=== PATIENT | female | born 1985 ===

== ENCOUNTER 2020-12-07 10:10 | Outpatient (REF) | payer OTHER, SELFPAY ==
[2020-12-07 13:57] LABS: MANUAL DIFF FLAG NO
[2020-12-07 14:11] LABS: Basophils Percent Auto 0.3 % (0-2); Eosinophils Absolute Auto 0.2 X10*3/uL (0.0-0.4); Eosinophils Percent Auto 2.5 % (0-4); Hematocrit 36.6 % (37-47); Hemoglobin 11.7 g/dl (12.0-16.0); Imm Gran Abs Auto 0.02 X10*3/uL (0.00-0.03); Imm Gran Pct Auto 0.3 % (0.0-0.4); Lymphocytes Absolute Auto 2.2 X10*3/uL (1.2-4.9); Lymphocytes Percent Auto 34.1 % (20-40); Mean Corpuscular Hemoglobin 26.7 pg (27.0-33.0); Mean Corpuscular Volume 83.4 fL (80-98); Monocytes Absolute Auto 0.5 X10*3/uL (0.1-1.2); Monocytes Percent Auto 7.1 % (2-11); Neutrophils Absolute Auto 3.6 X10*3/uL (2.0-8.3); Neutrophils Percent Auto 55.7 % (45-73); Platelet Count 318 X10*3/uL (160-400); Red Blood Count 4.39 X10*6/uL (4.20-5.50); Red Cell Distribution Width 14.6 % (11.0-16.0); White Blood Count 6.5 X10*3/uL (4.8-10.8)
[2020-12-07 14:34] LABS: Alanine Aminotransferase 18 U/L (0-31); Alkaline Phosphatase 68 U/L (39-117); Anion Gap 11 (12-20); Aspartate Amino Transferase 18 U/L (5-31); Bilirubin Total 0.4 mg/dL (0.0-1.0); Blood Urea Nitrogen 12 mg/dL (9-16); Calcium 9.2 mg/dL (8.4-10.2); Carbon Dioxide 26 mmol/L (22-29); Chloride 105 mmol/L (96-108); Cholesterol 157 mg/dL; Estimated Glomerular Filt Rate > 60; Glucose Fasting 85 mg/dL (60-99); HDL Cholesterol 43 mg/dL; LDL Cholesterol Calculated 99 mg/dl; Potassium 4.3 mmol/L (3.3-5.1); Sodium 138 mmol/L (135-145); Total Protein 7.4 g/dL (6.5-8.0); Triglycerides 78 mg/dL
[2020-12-07 14:57] LABS: Thyroid Stimulating Hormone 0.67 uIU/mL (0.32-4.0)
[2020-12-07 15:31] LABS: Ferritin 7 ng/mL (10-122)
== END 2020-12-07 10:11 | disposition home or self-care (01) ==
LOC: HO.10HDL 10:10
PROVIDERS: Visit Provider Internal Medicine
DX: Z00.00 Encounter for general adult medical examination without abnormal findings (principal); D50.8 Other iron deficiency anemias; F41.0 Panic disorder [episodic paroxysmal anxiety]
CPT/HCPCS: 36415; 80053; 80061; 82728; 84443; 85025

== ENCOUNTER 2021-10-03 09:37 | Emergency (ER) | payer OTHER, SELFPAY ==
[2021-10-03 10:57] VITALS: BP 133/89; PULSE 78; RESP 18; TEMP 536.6; TEMP 998; O2SAT 98
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
== END 2021-10-03 14:45 | disposition home or self-care (01) ==
PROVIDERS: Emergency Provider Student in an Organized Health Care Education/Training Program; PCP Internal Medicine
DX: S39.012A Strain of muscle, fascia and tendon of lower back, initial encounter (principal); S13.4XXA Sprain of ligaments of cervical spine, initial encounter; V43.62XA Car passenger injured in collision with other type car in traffic accident, initial encounter; Y93.9 Activity, unspecified; Y92.410 Unspecified street and highway as the place of occurrence of the external cause; Y99.9 Unspecified external cause status; Z79.899 Other long term (current) drug therapy
CPT/HCPCS: 99283

== ENCOUNTER 2022-02-11 00:04 | Emergency (ER) | payer OTHER, SELFPAY ==
--- NOTE | 2022-02-11 | ECG_ITS ---
Test Reason : chest tightness Blood Pressure : / mmHG Vent. Rate : 091 BPM Atrial Rate : 091 BPM P-R Int : 152 ms QRS Dur : 090 ms QT Int : 378 ms P-R-T Axes : 050 037 045 degrees QTc Int : 464 ms Normal sinus rhythm RSR' or QR pattern in V1 suggests right ventricular conduction delay Otherwise normal ECG No previous ECGs available Referred By: Generic ED Physician Electronically Signed By:LUZMA GRAMAJO MD
--- NOTE | ~2022-02-11 | XR_ITS ---
EXAMINATION: XR CHEST, 2 VIEWS CLINICAL INFORMATION: Cough COMPARISON: None. TECHNIQUE: PA and lateral views of the chest were obtained. FINDINGS: Lungs are clear. No consolidation, pneumothorax, or pleural effusion. Cardiac and mediastinal contours are normal. Pulmonary vasculature is unremarkable. Trachea is midline. Osseous structures are unremarkable. Cholecystectomy clips are present in the right upper quadrant. XR/XR chest 2V IMPRESSION: No acute cardiopulmonary findings.
[2022-02-11 00:55] VITALS: BP 153/92; PULSE 97; RESP 16; TEMP 37; O2SAT 98; BMI 28.1
[2022-02-11 02:18] LABS: Influenza A Negative (Negative); Influenza B2 Negative (Negative)
--- NOTE | 2022-02-11 02:27 | ED.URI ---
HPI - URI/Sore Throat General Chief Complaint: Upper Respiratory Symptoms Stated Complaint: cough, burning when cough Time Seen by Provider: 02/11/22 02:27 Source: patient Mode of arrival: ambulatory Limitations: no limitations History of Present Illness HPI Narrative: Patient c/o dry cough feel congested since early today no fever no chills no running nose no other family member sick Related Data Previous Rx's Medication Instructions Recorded cyclobenzaprine 10 mg tablet 10 mg PO TID PRN muscle spasm #14 10/03/21 tabs ibuprofen 600 mg tablet 600 mg PO Q8H PRN pain #14 tabs 10/03/21 lidocaine 5 % topical patch 1 patch topical DAILY #15 ea 10/03/21 albuterol sulfate 90 mcg/actuation 2 puff inhalation Q4-6H PRN 02/11/22 aerosol inhaler (ProAir HFA) shortness of breath or wheezing #8.5 grams Allergies Allergy/AdvReac Type Severity Reaction Status Date / Time No Known Allergies Allergy Unverified 12/11/19 19:43 [No Known Allergies*] Review of Systems Review of Systems: Yes all other systems are reviewed and are negative [facility] Social History Social History Smoked in Last 30 Days: No Use of substances other than those prescribed or required for medical reasons: No Advance Directives: No Advance Directives Information Provided: No Physical Exam Vital Signs: Vital Signs: Last Vital Signs Temp 97.7 F 02/11/22 03:48 Pulse 90 02/11/22 03:48 Resp 18 02/11/22 03:48 BP 133/90 H 02/11/22 03:48 Pulse Ox 100 02/11/22 03:49 O2 Del Method 02/11/22 03:49 BMI result Body Mass Index 28.1 Appearance: Alert. Oriented X3. No acute distress. ENT: Pharynx normal. Oral Mucosa moist Neck: Normal inspection. Neck supple. CVS: Normal heart rate and rhythm. Pulses normal. Respiratory: No respiratory distress. Equal air entry bilateral, prolonged expiration with dry cough Abdomen: Soft and nontender. Bowel sounds are present, no mass palpable, no CVA tenderness Skin: Skin warm and dry. Normal skin color. Normal skin turgor. Extremities: No lower extremity edema. No calf tenderness Neuro: Oriented X 3. Medications Administered Discontinued Medications Generic Name Dose Route Start Last Admin Trade Name Jasperq PRN Reason Stop Dose Admin Albuterol/Ipratropium 3 ml 02/11/22 02:37 02/11/22 03:20 Albuterol/Iprat 2.5/0.5mg 3 Ml Ampul.Neb INHALE 02/11/22 02:38 3 ml ONCE ONE Administration MDM - URI/Sore Throat Lab Data Attestation: I reviewed the patient's lab results. Labs: Lab Results 02/11/22 Range/Units 01:49 Influenza Type A (CONSUELO) Negative (Negative) Influenza Type B (CONSUELO) Negative (Negative) Influenza A & B Note See Note Discharge Plan Discharge Clinical Impression: Bronchitis Patient Disposition: Home, Self-Care Instructions: Acute Bronchitis (ED) Additional Instructions: Use inhaler as advised Follow up with PCP Report to the ER if increased shortness of breath/chest pain Prescriptions: New albuterol sulfate [ProAir HFA] 90 mcg/actuation HFA aerosol inhaler 2 puff inhalation Q4-6H PRN (Reason: shortness of breath or wheezing) Qty: 8.5 0RF No Action cyclobenzaprine 10 mg tablet 10 mg PO TID PRN (Reason: muscle spasm) Qty: 14 0RF ibuprofen 600 mg tablet 600 mg PO Q8H PRN (Reason: pain) Qty: 14 0RF lidocaine 5 % adhesive patch,medicated 1 patch topical DAILY Qty: 15 0RF Rx Instructions: leave on most painful area for up to 12 hrs Interventions: ED Discharge Assessment Last Done: 02/11/22 03:55 Discharge Date/Time: 02/11/22 03:57
[2022-02-11] MEDS: Albuterol/Iprat 2.5/0.5MG 3 ML AMPUL.NEB INHALE (03:20)
[2022-02-11 03:21] VITALS: PULSE 88; RESP 18
[2022-02-11 03:48] VITALS: BP 133/90; PULSE 90; RESP 18; TEMP 36.5; O2SAT 100
[2022-02-11 03:49] VITALS: O2SAT 100
== END 2022-02-11 03:57 | disposition home or self-care (01) ==
PROVIDERS: Emergency Provider Internal Medicine; PCP Internal Medicine
DX: J40 Bronchitis, not specified as acute or chronic (principal)
CPT/HCPCS: 71046; 87502; 93005; 94640; 99284; 99285

== ENCOUNTER 2022-11-17 17:03 | Emergency (ER) | payer OTHER, SELFPAY ==
--- NOTE | ~2022-11-17 | XR_ITS ---
EXAMINATION: XR CHEST CLINICAL INFORMATION: Chest pain. COMPARISON: Chest radiograph 02/11/2022. TECHNIQUE: 2 views of the chest were obtained. FINDINGS: Normal appearance of the cardiomediastinal silhouette. No focal airspace opacities, pleural effusion or pneumothorax. Right upper quadrant surgical clips. No acute osseous findings. XR/XR chest 2V IMPRESSION: No acute cardiopulmonary findings.
--- NOTE | 2022-11-17 17:13 | ECG_ITS ---
Test Reason : CHEST PAIN Blood Pressure : / mmHG Vent. Rate : 087 BPM Atrial Rate : 087 BPM P-R Int : 148 ms QRS Dur : 090 ms QT Int : 372 ms P-R-T Axes : 030 -18 019 degrees QTc Int : 447 ms Normal sinus rhythm Normal ECG When compared with ECG of 11-FEB-2022 00:42, No significant change was found Referred By: Generic ED Physician Electronically Signed By:AHSAN FRENCH
[2022-11-17 17:42] VITALS: BP 152/100; PULSE 77; RESP 17; TEMP 36.9; O2SAT 99; BMI 29.0
--- NOTE | 2022-11-17 17:42 | ED_ITS ---
HPI - General Adult General Chief complaint: Chest Pain Stated complaint: chest pain, high blood pressure Related Data Previous Rx's Medication Instructions Recorded cyclobenzaprine 10 mg tablet 10 mg PO TID PRN muscle spasm #14 10/03/21 tabs ibuprofen 600 mg tablet 600 mg PO Q8H PRN pain #14 tabs 10/03/21 lidocaine 5 % topical patch 1 patch topical DAILY #15 ea 10/03/21 albuterol sulfate 90 mcg/actuation 2 puff inhalation Q4-6H PRN 02/11/22 aerosol inhaler (ProAir HFA) shortness of breath or wheezing #8.5 grams Allergies Allergy/AdvReac Type Severity Reaction Status Date / Time No Known Allergies Allergy Unverified 12/11/19 19:43 [No Known Allergies*] PMFSH Social History Social History Advance Directives: No Advance Directives Information Provided: No Physical Exam ED Vital Signs: Vital Signs - 24 hr 11/17/22 17:42 Temperature 98.4 F Pulse Rate 77 Respiratory Rate 17 Blood Pressure 152/100 H Pulse Oximetry 99 Oxygen Delivery Method Room Air BMI result Body Mass Index 29.0 Course Course Course Narrative: This is a rapid medical exam: Additional HPI, ROS, PE not included below will be deferred to primary provider. Patient is a 37-year-old female presenting to the emergency department with complaint of chest pain and elevated blood pressure reading at work earlier today. States pain is intermittent, denies nausea or vomiting. Denies any shortness of breath. Denies personal history of HTN but reports family hx of htn. States BP today was 159/104. Reports current chest pain is 8. Plan: EKG, labs, CXR Medical Decision Making Lab Data 11/17/22 18:42 11/17/22 18:42 Labs: Lab Results 11/17/22 11/17/22 11/17/22 Range/Units 18:42 18:42 18:42 WBC 9.2 (4.8-10.8) X10*3/uL RBC 4.76 (4.20-5.50) X10*6/uL Hgb 13.4 (12.0-16.0) g/dl Hct 40.6 (37.0-47.0) % MCV 85.3 (80.0-98.0) fL MCH 28.2 (27.0-33.0) pg MCHC 33.0 (31.0-35.0) g/dl RDW 15.8 (11.0-16.0) % Plt Count 313 (160-400) X10*3/uL MPV 10.1 (9.4-12.3) fL Immature Gran % (Auto) 0.3 (0.0-0.4) % Neut % (Auto) 66.9 (45-73) % Lymph % (Auto) 25.1 (20-40) % [place] % (Auto) 6.4 (2-11) % Eos % (Auto) 1.0 (0-4) % Baso % (Auto) 0.3 (0-2) % Lymph # (Auto) 2.3 (1.2-4.9) X10*3/uL [place] # (Auto) 0.6 (0.1-1.2) X10*3/uL Eos # (Auto) 0.1 (0.0-0.4) X10*3/uL Baso # (Auto) 0.0 (0.0-0.2) X10*3/uL Abs Immat Gran (auto) 0.03 (0.00-0.03) X10*3/uL Absolute Neuts (auto) 6.2 (2.0-8.3) x10*3/uL Absolute Nucleated RBC 0.000 (0.0-0.012) X10*3/uL Nucleated RBC % (auto) 0.0 (0.0-0.2) /100WBC Sodium 138 (135-145) mmol/L Potassium 4.0 (3.3-5.1) mmol/L Chloride 105 (96-108) mmol/L Carbon Dioxide 24 (22-29) mmol/L Anion Gap 13 (12-20) BUN 9 (9-16) mg/dL Creatinine 0.75 (0.5-1.4) mg/dL Estim Creat Clear Calc 104.9 Estimated GFR > 60 Random Glucose 96 (60-115) mg/dL Calcium 9.5 (8.4-10.2) mg/dL Total Bilirubin 0.2 (0.0-1.0) mg/dL AST 21 (5-31) U/L ALT 25 (0-31) U/L Alkaline Phosphatase 62 (39-117) U/L Troponin I High Sens < 2.7 (<3.5-17.0) ng/L Total Protein 8.1 H (6.5-8.0) g/dL Albumin 4.2 (3.5-5.0) g/dL Beta HCG, Quant < 2 mIU/mL Discharge Plan Discharge Clinical Impression: Chest pain Patient Disposition: Elopement Prescriptions: No Action cyclobenzaprine 10 mg tablet 10 mg PO TID PRN (Reason: muscle spasm) Qty: 14 0RF ibuprofen 600 mg tablet 600 mg PO Q8H PRN (Reason: pain) Qty: 14 0RF lidocaine 5 % adhesive patch,medicated 1 patch topical DAILY Qty: 15 0RF Rx Instructions: leave on most painful area for up to 12 hrs albuterol sulfate [ProAir HFA] 90 mcg/actuation HFA aerosol inhaler 2 puff inhalation Q4-6H PRN (Reason: shortness of breath or wheezing) Qty: 8.5 0RF Interventions: ED Discharge Assessment Last Done: 11/17/22 21:19 Discharge Date/Time: 11/17/22 21:34
[2022-11-17 18:58] LABS: MANUAL DIFF FLAG NO
[2022-11-17 19:02] LABS: Basophils Percent Auto 0.3 % (0-2); Eosinophils Absolute Auto 0.1 X10*3/uL (0.0-0.4); Hematocrit 40.6 % (37.0-47.0); Hemoglobin 13.4 g/dl (12.0-16.0); Imm Gran Abs Auto 0.03 X10*3/uL (0.00-0.03); Imm Gran Pct Auto 0.3 % (0.0-0.4); Lymphocytes Absolute Auto 2.3 X10*3/uL (1.2-4.9); Lymphocytes Percent Auto 25.1 % (20-40); Mean Corpuscular Hemoglobin 28.2 pg (27.0-33.0); Mean Corpuscular Volume 85.3 fL (80.0-98.0); Mean Platelet Volume 10.1 fL (9.4-12.3); Monocytes Absolute Auto 0.6 X10*3/uL (0.1-1.2); Monocytes Percent Auto 6.4 % (2-11); Neutrophils Absolute Auto 6.2 x10*3/uL (2.0-8.3); Neutrophils Percent Auto 66.9 % (45-73); Platelet Count 313 X10*3/uL (160-400); Red Blood Count 4.76 X10*6/uL (4.20-5.50); Red Cell Distribution Width 15.8 % (11.0-16.0); White Blood Count 9.2 X10*3/uL (4.8-10.8)
[2022-11-17 19:22] LABS: Alanine Aminotransferase 25 U/L (0-31); Albumin Level 4.2 g/dL (3.5-5.0); Alkaline Phosphatase 62 U/L (39-117); Anion Gap 13 (12-20); Aspartate Amino Transferase 21 U/L (5-31); Bilirubin Total 0.2 mg/dL (0.0-1.0); Blood Urea Nitrogen 9 mg/dL (9-16); Calcium 9.5 mg/dL (8.4-10.2); Carbon Dioxide 24 mmol/L (22-29); Chloride 105 mmol/L (96-108); Creatinine Clr Calc Pharmacy 104.9; Estimated Glomerular Filt Rate > 60; Glucose Random 96 mg/dL (60-115); Sodium 138 mmol/L (135-145); Total Protein 8.1 g/dL (6.5-8.0)
[2022-11-17 19:24] LABS: HCG Quantitative < 2 mIU/mL; Troponin-I High Sensitivity < 2.7 ng/L (<3.5-17.0)
== END 2022-11-17 21:34 | disposition left against medical advice (07) ==
PROVIDERS: Registered Nurse Emergency; Emergency Provider Emergency Medicine
DX: R07.89 Other chest pain (principal); Z79.899 Other long term (current) drug therapy
CPT/HCPCS: 36415; 71046; 80053; 84484; 84702; 85025; 93005; 99283

== ENCOUNTER 2024-01-20 12:49 | Emergency (ER) | payer OTHER, SELFPAY ==
--- NOTE | ~2024-01-20 | CT_ITS ---
EXAMINATION: CT ABDOMEN AND PELVIS WITHOUT CONTRAST CLINICAL INFORMATION: Question stone COMPARISON: None available. TECHNIQUE: Multidetector volumetric imaging was performed from the superior aspect of the liver through the pubic symphysis. Sagittal and coronal reformatted images were obtained on the technologist's workstation. This CT examination was performed using dose optimization techniques as appropriate, variously including the following: *Automated exposure control *Adjustment of mA and/or kV according to patient size (this includes techniques or standardized protocols for targeted exams where dose is matched to indication/reason for exam; i.e. extremities or head) *Use of iterative reconstruction technique DLP: 578 mGy-cm FINDINGS: LUNG BASES: Mild right basilar atelectasis. No pericardial or pleural effusion. LIVER, GALLBLADDER, AND BILIARY TREE: Right lobe measures 14.8 cm. Normal echogenicity.. No focal hepatic lesion or biliary ductal dilatation is present. Status postcholecystectomy. PANCREAS: Unremarkable. SPLEEN: Unremarkable. ADRENAL GLANDS: Unremarkable. KIDNEYS AND URETERS: Normal renal attenuation. No suspicious renal lesion. No renal calculi. No ureteral calculi or hydronephrosis is seen. No significant perinephric stranding. BLADDER: Unremarkable. GASTROINTESTINAL TRACT: Stomach is luminal contents. No dilated small or large bowel loops. Large colon is nondistended. No acute bowel inflammatory changes identified. No free fluid. No free air. Thin tubular structure suspected to be the appendix appears unremarkable. No pericecal inflammatory changes. ABDOMINAL WALL: No significant hernia is appreciated. LYMPH NODES: No pathologically enlarged lymph nodes seen. VASCULAR: Normal caliber aorta. PELVIC VISCERA: Limited evaluation by CT. No suspicious adnexal mass is identified.. OSSEOUS STRUCTURES: No suspicious osseous abnormality. CT/CT abdomen pelvis wo IV con IMPRESSION: 1. No evidence of renal or ureteral calculi. No hydronephrosis seen. 2. No acute intra-abdominal findings seen to explain the patient's symptoms. Clinically correlate. Further/follow-up imaging as clinically indicated. Fleischner guidelines were followed. Electronically signed by: Andrés Bhandari MD 01/20/2024 03:34 PM EDT
[2024-01-20 12:58] VITALS: BP 122/79; BP 133/86; PULSE 81; PULSE 85; RESP 16; TEMP 36.9; O2SAT 97; BMI 31.4
--- NOTE | 2024-01-20 13:23 | ED.FEMALEGU ---
HPI - Female Genitourinary General Chief complaint: Urogenital-Female Stated complaint: BLOOD IN URINE FLANK PAIN Time Seen by Provider: 01/20/24 13:11 Source: patient Mode of arrival: EMS Limitations: no limitations History of Present Illness HPI Narrative: This is a 38 years old patient brought in by ambulance because of pain during urination and blood in the urine x2 days. She denies any fever chills. MD elicited complaint: dysuria and UTI Onset (ago): day(s) (2) Severity: mild Female Urogenital Radiation: Non-Radiating Quality of pain: cramping Vaginal discharge: none Vaginal bleeding: none Urinary symptoms: Dysuria and Hematuria Exacerbating factors: none Relieving factors: none Associated symptoms: denies other symptoms Related Data Previous Rx's ?Medication ?Instructions ?Recorded cyclobenzaprine 10 mg tablet 10 mg PO TID PRN muscle spasm #14 10/03/21 tabs ibuprofen 600 mg tablet 600 mg PO Q8H PRN pain #14 tabs 10/03/21 lidocaine 5 % topical patch 1 patch topical DAILY #15 ea 10/03/21 albuterol sulfate 90 mcg/actuation 2 puff inhalation Q4-6H PRN 02/11/22 aerosol inhaler (ProAir HFA) shortness of breath or wheezing #8.5 grams levofloxacin 500 mg tablet 500 mg PO DAILY 3 days #3 tabs 01/20/24 Allergies Allergy/AdvReac Type Severity Reaction Status Date / Time No Known Allergies Allergy Verified 01/20/24 13:00 [No Known Allergies*] Review of Systems Constitutional: Constitutional: Reports no additional constitutional complaints ENT: Reports system reviewed and no additional complaints, except as documented Musculoskeletal: Musculoskeletal: Reports no additional musculoskeletal complaints [facility] Past Medical History [facility] Narrative: denies any medical problems Social History Social History Advance Directives: No Advance Directives Information Provided: No Physical Exam Vital Signs: Vital Signs: Last Vital Signs Temp 98.1 F 01/20/24 16:00 Pulse 76 01/20/24 16:00 Resp 20 01/20/24 16:00 BP 116/78 01/20/24 16:00 Pulse Ox 99 01/20/24 16:00 O2 Del Method Room Air 01/20/24 16:00 BMI result Body Mass Index 31.4 She looks well she is not toxic-appearing Const: General: cooperative Orientation/consciousness: oriented to person and patient oriented x3 Limitations: no limitations HEENT: Head: Yes normal to inspection General nose exam: Normal external nose present Face and sinus: Yes normal facial exam Mouth: Normal oral and palatal mucosa present Neck: Neck: Yes normal visual inspection Chest: Chest palpation & inspection: normal inspection of the chest Resp: Effort & Inspection: normal respiratory effort Auscultation: clear to auscultation bilaterally Cardio: Jugular venous distension: no JVD Rate: regular rate Rhythm: regular rhythm GI: Inspection: Yes normal to inspection Palpation (GI): Soft to palpation, not firm, nontender and no guarding : General: Yes no CVA tenderness Back/Spine/Pelvis: Back: no CVA tenderness Skin: General skin exam: no rashes or lesions noted and elasticity normal Lesions: no lesions Rashes: no rashes Neuro: General: oriented to person and patient oriented x3 Course Reevaluation(s) Reevaluation #1: On re-examination she is not toxic she looks well clinical picture consistent with a hemorrhagic cystitis she can be discharged home and follow-up with the PCP she is comfortable with this Time: 16:10 Medications Administered Discontinued Medications Generic Name Dose Route Start Last Admin Trade Name Freq PRN Reason Stop Dose Admin Levofloxacin 500 mg 01/20/24 14:23 01/20/24 14:36 Levofloxacin 500 Mg Tablet PO 01/20/24 14:24 500 mg ONCE ONE Administration Phenazopyridine HCl 200 mg 01/20/24 14:23 01/20/24 14:36 Phenazopyridine Hcl 200 Mg Tablet PO 01/20/24 14:24 200 mg ONCE ONE Administration Medical Decision Making Medical Decision Making [facility] Narrative: Patient presented with hematuria we will check a UA labs Differential Diagnosis Differential Diagnoses: The differential diagnosis associated with the presentation includes UTI/kidney stones/hemorrhagic cystitis Admission/Observation Consideration of admission/observation: Escalation of care including admission/observation considered Lab Data [facility] Lab Attestation statement: I reviewed the patient's lab results. 01/20/24 13:37 01/20/24 13:37 Labs: Lab Results 01/20/24 Range/Units 13:37 WBC 11.9 H (4.8-10.8) X10*3/uL RBC 4.42 (4.20-5.50) X10*6/uL Hgb 12.3 (12.0-16.0) g/dl Hct 38.1 (37.0-47.0) % MCV 86.2 (80.0-98.0) fL MCH 27.8 (27.0-33.0) pg MCHC 32.3 (31.0-35.0) g/dl RDW 13.6 (11.0-16.0) % Plt Count 388 (160-400) X10*3/uL MPV 9.5 (9.4-12.3) fL Immature Gran % (Auto) 0.3 (0.0-0.4) % Neut % (Auto) 72.7 (45-73) % Lymph % (Auto) 19.0 L (20-40) % [place] % (Auto) 6.7 (2-11) % Eos % (Auto) 1.0 (0-4) % Baso % (Auto) 0.3 (0-2) % Lymph # (Auto) 2.3 (1.2-4.9) X10*3/uL [place] # (Auto) 0.8 (0.1-1.2) X10*3/uL Eos # (Auto) 0.1 (0.0-0.4) X10*3/uL Baso # (Auto) 0.0 (0.0-0.2) X10*3/uL Abs Immat Gran (auto) 0.04 H (0.00-0.03) X10*3/uL Absolute Neuts (auto) 8.6 H (2.0-8.3) x10*3/uL Absolute Nucleated RBC 0.000 (0.0-0.012) X10*3/uL Nucleated RBC % (auto) 0.0 (0.0-0.2) /100WBC Sodium 139 (135-145) mmol/L Potassium 3.6 (3.3-5.1) mmol/L Chloride 105 (96-108) mmol/L Carbon Dioxide 27 (22-29) mmol/L Anion Gap 11 L (12-20) BUN 11 (9-16) mg/dL Creatinine 0.74 (0.5-1.4) mg/dL Estim Creat Clear Calc 105.5 Estimated GFR > 60 Random Glucose 87 (60-115) mg/dL Calcium 9.2 (8.4-10.2) mg/dL Total Bilirubin 0.2 (0.0-1.0) mg/dL AST 21 (5-31) U/L ALT 23 (0-31) U/L Alkaline Phosphatase 74 (39-117) U/L Total Protein 7.4 (6.5-8.0) g/dL Albumin 3.9 (3.5-5.0) g/dL Beta HCG, Quant < 2 mIU/mL Urine Color Yellow Urine Appearance Clear Urine pH 6.5 (5.0-9.0) Ur Specific [place] 1.020 (1.005-1.025) Urine Protein Trace (Neg-Trace) mg/dL Urine Glucose (UA) Negative (Negative) mg/dL Urine Ketones Negative (Negative) mg/dL Urine Blood Moderate (2+) H (Negative) Urine Nitrite Negative (Negative) Ur Leukocyte Esterase Moderate (2+) H (Negative) Urine RBC >20 H (0-2) /HPF Urine WBC >50 H (0-5) /HPF Ur Squamous Epith Cells 0-2 (0-2) /HPF Urine Bacteria None Seen (None Seen) Hyaline Casts 0-2 (0-2) /LPF Independent Interpretation I performed an independent interpretation of an: CT Scan Radiology Impression Discussion of test interpretation with radiology: I have reviewed the radiologist's reading. Discharge Plan Discharge Clinical Impression: Urinary tract infection Patient Disposition: Home, Self-Care Instructions: Urinary Tract Infection in Women (DC) Additional Instructions: Take antibiotic as directed follow-up with your primary care physician return if you worse Prescriptions: New levofloxacin 500 mg tablet 500 mg PO DAILY 3 Days Qty: 3 0RF No Action cyclobenzaprine 10 mg tablet 10 mg PO TID PRN (Reason: muscle spasm) Qty: 14 0RF ibuprofen 600 mg tablet 600 mg PO Q8H PRN (Reason: pain) Qty: 14 0RF lidocaine 5 % adhesive patch,medicated 1 patch topical DAILY Qty: 15 0RF Rx Instructions: leave on most painful area for up to 12 hrs albuterol sulfate [ProAir HFA] 90 mcg/actuation HFA aerosol inhaler 2 puff inhalation Q4-6H PRN (Reason: shortness of breath or wheezing) Qty: 8.5 0RF Referrals: Arabella Mendez MD [Primary Care Provider] - 2 days Print Language: Peruvian
[2024-01-20 13:45] LABS: MANUAL DIFF FLAG NO
[2024-01-20 13:46] LABS: Basophils Percent Auto 0.3 % (0-2); Eosinophils Absolute Auto 0.1 X10*3/uL (0.0-0.4); Hematocrit 38.1 % (37.0-47.0); Hemoglobin 12.3 g/dl (12.0-16.0); Imm Gran Abs Auto 0.04 X10*3/uL (0.00-0.03); Imm Gran Pct Auto 0.3 % (0.0-0.4); Lymphocytes Absolute Auto 2.3 X10*3/uL (1.2-4.9); Mean Corpuscular HGB Conc 32.3 g/dl (31.0-35.0); Mean Corpuscular Hemoglobin 27.8 pg (27.0-33.0); Mean Corpuscular Volume 86.2 fL (80.0-98.0); Mean Platelet Volume 9.5 fL (9.4-12.3); Monocytes Absolute Auto 0.8 X10*3/uL (0.1-1.2); Monocytes Percent Auto 6.7 % (2-11); Neutrophils Absolute Auto 8.6 x10*3/uL (2.0-8.3); Neutrophils Percent Auto 72.7 % (45-73); Platelet Count 388 X10*3/uL (160-400); Red Blood Count 4.42 X10*6/uL (4.20-5.50); Red Cell Distribution Width 13.6 % (11.0-16.0); White Blood Count 11.9 X10*3/uL (4.8-10.8)
[2024-01-20 13:47] LABS: Appearance Urine Clear; Color Urine Yellow; Glucose Urine UA Negative (Negative); Leukocyte Esterase Urine Moderate (2+) (Negative); Nitrite Urine Negative (Negative); PH 6.5 (5.0-9.0); UMIC TRIGGER UACC YES; Urine Blood Moderate (2+) (Negative); Urine Ketones Negative (Negative); Urine Protein Trace mg/dL (Neg-Trace)
[2024-01-20 13:52] LABS: Bacteria Urine None Seen (None Seen); Hyaline Casts Urine 0-2 /LPF (0-2); RBC Urine >20 /HPF (0-2); Squamous Epithelial Cell Urine 0-2 /HPF (0-2); UACC Culture Trigger YES; WBC Urine >50 /HPF (0-5)
[2024-01-20 14:13] LABS: Alanine Aminotransferase 23 U/L (0-31); Albumin Level 3.9 g/dL (3.5-5.0); Alkaline Phosphatase 74 U/L (39-117); Anion Gap 11 (12-20); Aspartate Amino Transferase 21 U/L (5-31); Bilirubin Total 0.2 mg/dL (0.0-1.0); Blood Urea Nitrogen 11 mg/dL (9-16); Calcium 9.2 mg/dL (8.4-10.2); Carbon Dioxide 27 mmol/L (22-29); Chloride 105 mmol/L (96-108); Creatinine Clr Calc Pharmacy 105.5; Estimated Glomerular Filt Rate > 60; Glucose Random 87 mg/dL (60-115); Potassium 3.6 mmol/L (3.3-5.1); Sodium 139 mmol/L (135-145); Total Protein 7.4 g/dL (6.5-8.0)
[2024-01-20 14:18] LABS: HCG Quantitative < 2 mIU/mL
[2024-01-20] MEDS: Phenazopyridine HCL 200 MG TABLET PO (14:36)
[2024-01-20] MEDS: levoFLOXacin 500 MG TABLET PO (14:36)
[2024-01-20 16:00] VITALS: BP 116/78; PULSE 76; RESP 20; TEMP 36.7; O2SAT 99
[2024-01-20 16:35] VITALS: BP 116/78; PULSE 76; RESP 20; TEMP 36.7; O2SAT 99
== END 2024-01-20 16:36 | disposition home or self-care (01) ==
PROVIDERS: Emergency Provider Emergency Medicine; PCP Internal Medicine
DX: N39.0 Urinary tract infection, site not specified (principal); R31.9 Hematuria, unspecified; R10.2 Pelvic and perineal pain; R30.0 Dysuria; Z79.899 Other long term (current) drug therapy
CPT/HCPCS: 36415; 74176; 80053; 81001; 84702; 85025; 87086; 87088; 87186; 99284

== ENCOUNTER 2024-11-06 12:38 | Emergency (ER) | payer OTHER, SELFPAY ==
--- NOTE | ~2024-11-06 | CT_ITS ---
EXAMINATION: CT HEAD WITHOUT CONTRAST CLINICAL INFORMATION: headache, head strike COMPARISON: None available. TECHNIQUE: Contiguous axial imaging was performed from the skull base to vertex without intravenous administration of contrast. This CT examination was performed using dose optimization techniques as appropriate, variously including the following: *Automated exposure control *Adjustment of mA and/or kV according to patient size (this includes techniques or standardized protocols for targeted exams where dose is matched to indication/reason for exam; i.e. extremities or head) *Use of iterative reconstruction technique DLP: 756 mGy-cm FINDINGS: No acute intracranial hemorrhage, mass effect, midline shift, hydrocephalus or herniation. Glasgow-white matter differentiation is normal. Posterior cranial fossa contents demonstrated no hemorrhage or gross mass effect. Normal position of the cerebellar tonsils. Intrasellar CSF prominence suggesting diaphragmatic sella insufficiency. No air-fluid levels in the paranasal sinuses. For pneumatization of the frontal sinuses. Tympanic cavities and mastoid cells are aerated. Metallic piercing in the nostril. CT/CT head/brain wo IV con IMPRESSION: No acute or structural brain abnormality by CT. Electronically signed by: Donis Pérez MD 11/06/2024 02:19 PM EDT
[2024-11-06 12:45] VITALS: BP 139/80; PULSE 78; RESP 16; TEMP 36.8; O2SAT 97; BMI 29.8
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
[2024-11-06 15:06] VITALS: BP 139/80; PULSE 78; RESP 16; TEMP 36.8; O2SAT 97
--- OUTSIDE RECORDS SUMMARY | 2024-11-06 15:20 | XMS_ITS | Clinical Summary ---
Author Organization [facility] Address [address] [place] [address] Care Team Providers Care Swedish Masseuse Name Role Phone Arabella Mendez MD Primary Care Prov ider Allergies No known active allergies Medications Medication Sig Dispensed Refills Start Date End Date Status ferrous sulfate 325 (65 FE) MG tablet Take 1 tablet (325 mg total) by mouth every morning with breakfast. 0 Active vitamin D3 (cholecalciferol) 25 MCG (1000 UT) tablet Take 1 tablet (25 mcg total) by mouth daily. 0 Active phentermine 37.5 MG capsule Take 1 capsule (37.5 mg total) by mouth every morning. 0 Active Active Problems Problem Noted Date Diagnosed Date Iron deficiency anemia due to chronic blood loss 10/23/2022 Social History Tobacco Use Types Packs/Day Years Used Date Smoking Tobacco: Never Smokeless Tobacco: Never Tobacco Cessation:Counseling Given: Not Answered Alcohol Use Standard Drinks/Week Comments Not Currently 0 (1 standard drink = 0.6 oz pur e alcohol) Sex and Gender Information Value Date Recorded Sex Assigned at Female 10/23/2022 3:09 PM EDT Gender Identity Not on file Sexual Orientation Not on file Job Start Date Occupation Industry Not on file Not on file Not on file Last Filed Vital Signs Vital Sign Reading Time Taken Comments Blood Pressure 130/78 10/27/2022 9:44 AM EDT Pulse 81 10/27/2022 9:44 AM EDT Temperature 36.4 C (97.6 F) 10/27/2022 9:44 AM EDT Respiratory Rate 18 10/27/2022 9:44 AM EDT Oxygen Saturation 100% 10/27/2022 9:44 AM EDT Inhaled Oxygen Concentration - - Weight 76.5 kg (168 lb 9.6 oz) 10/20/2022 2:22 P M EDT Height 160 cm (5' 3 ) 10/20/2022 2:22 PM EDT Body Mass Index 29.87 10/20/2022 2:22 PM EDT Plan of Treatment Health Maintenance Due Date Last Done Comments Hepatitis B Vaccines (1 of 3 - 3-dose series) 1987 Hepatitis C Screening 1987 COVID-19 Vaccine (#1) 05/17/1988 Depression Screening 1999 Preventative Health Evaluation 11/14/2005 DTap / Tdap / Td (1 - Tdap) 11/14/2006 Cervical Cancer Screening (P ap Smear) 11/14/2008 Influenza Vaccine (#1) 2024 Pneumococcal Vaccine Aged Out No long er eligible based on patient's age to complete this topic RSV Ped < 20 months Aged Out No longe r eligible based on patient's age to complete this topic Care Teams Swedish Masseuse Relationship Specialty Start Date End Date Arabella Mendez MD [address] [place] [address] PCP - General Internal Medicine 04/28/22
--- OUTSIDE RECORDS SUMMARY | 2024-11-06 15:20 | XMS_ITS ---
Author Name [facility] Organization Unknown Care Team Organization Name Specialty Phone Email Start Date End Da te [facility] Arabella Mendez Primary Care 05/31/2022 11/12/2023
--- OUTSIDE RECORDS SUMMARY | 2024-11-06 15:20 | XMS_ITS | Clinical Summary ---
Author Organization [facility] [address] [place] [address] [place] [phone] Phone Care Team Providers Care Deicer Kit Assembler Name Role Phone Arabella Hurst MD Primary Care Prov ider Allergies Active Allergy Reactions Criticality Noted Date Comments Other 03/04/2024 Seasonal allergies Pollen Extracts 03/07/2022 Medications ammonium lactate (LAC-HYDRIN) 12 % lotion Apply topically. 4 Active cyclobenzaprin e (FLEXERIL) 10 mg tablet Take 1 tablet (10 mg total) by mouth 2 (two) times a day if needed for muscle spasms. 3 Active ketotifen fumarate (ZADITOR) 0.035 % ophthalmic solution Active omeprazole (PriLOSEC) [address] capsule Take 1 capsule (20 mg total) by mouth 1 (one) time each day. 3 Active levonorgestreL (MIRENA) 21 mcg/24hr (up to 8 yrs) 52 mg IUD 1 Device (1 each total) by intrauterine route 1 (one) time. 5 033 Active ibuprofen (ADVIL,MOTRIN) 800 mg tablet Take 1 tablet (800 mg total) by mouth every 8 (eight) hours if needed for moderate pain. 60 tablet 5 Active fluticasone propionate (FLONASE) 50 mcg/actuation nasal spray Administer 2 sprays into each nostril 1 (one) time each day. Shake gently. Before first use, prime pump. After use, clean tip and replace cap. 16 g 5 5 026 Active cromolyn (OPTICROM) 4 % ophthalmic solution Administer 1 drop into both eyes 4 (four) times a day. 15 mL 1 5 Active fexofenadine (KIERRA) 180 mg tablet Take 1 tablet (180 mg total) by mouth 1 (one) time each day if needed (allergies). 90 tablet 1 5 025 Active phentermine 37.5 mg capsuleIndicat ions:Obesity (BMI 30.0-34.9) TAKE 1 CAPSULE BY MOUTH EVERY DAY IN THE MORNING 30 capsule 1 5 Active loratadine (CLARITIN) 10 mg tablet Take 1 tablet (10 mg total) by mouth 1 (one) time each day. 90 each 3 5 025 Discontin ued(Thera py completed ) mometasone (NASONEX) 50 mcg/actuation nasal spray Administer 2 sprays into each nostril 2 (two) times a day. 17 g 5 5 025 Discontin ued(Formu matthew change) Active Problems Problem Noted Date Diagnosed Date Iron deficiency anemia due to chronic blood loss 10/23/2022 Assessment & Plan (07/17/2024 3:45 PM EDT): History of anemia, complains of weakness and fatigue. Will recheck iron levels, TSH. Orders: Ferritin; Future Iron and TIBC; Future Thyroid stimulating hormone; Future Anxiety 06/29/2022 Panic disorder 06/29/2022 Vitamin D deficiency 06/07/2022 Encounters Date Type Department Care Team Description 11/06/2024 Telephone Adult Medicine [address] [phone] Amanda Hong PA 11/04/2024 1:15 PM EDT Office Visit Adult Medicine [address] [phone] Riya Kim PA Upper respiratory tract infection, unspecified type (Primary Dx) 11/04/2024 Telephone Adult Medicine [address] [phone] Lesley Weber RN 08/20/2024 Telephone Adult Medicine [address] [phone] Jennifer Crystal MA Forms/questionnaires 08/06/2024 Telephone Adult Medicine [address] [phone] Arabella De Los Santos MD Prior Authorization from Last 3 Months Immunizations Name Administration Dates Next Due Influenza Quadravalent, MDCK , 0.5ml, with preservative (Flucelvax) 6mo and older 01/14/2021 Influenza, Unspecified 01/14/2022 Tdap Tetanus diptheria acell ular pertussis (Boostrix; Adacel) 7yo and older 01/08/2023 Surgical History Surgery Date Site/Laterality Comments SECTION PROCEDURE: HISTORICAL DELIVERY CHOLECYSTECTOMY PROCEDURE: HISTORICAL CHOLECYSTECTOMY TUBAL LIGATION Medical History Medical History Date Comments History of anemia DX:History of anemia Anxiety disorder DX:Anxiety diso rder Vitamin D deficiency DX:Vitamin D deficiency Family History Medical History Relation Name Comments Breast cancer Aunt m. Aunt 2 aunts, mater nal aunts No Known Problems Brother 1 Hypertension Brother 2 No Known Problems Daughter No Known Problems Father No Known Problems Half-Brother Maternal x2 No Known Problems Half-Sister 1 Maternal x1 No Known Problems Half-Sister 2 Paternal x1 No Known Problems Maternal Grandmother es tranged Depression Mother Hypertension Mother Obesity Mother Breast cancer Other 2 maternal cousins 2 cousin s, daughter of the aunts No Known Problems Sister x2 Asthma Son 1 No Known Problems Son 2 Ovarian cancer Neg Hx Uterine cancer Neg Hx Relation Name Status Comments Aunt m. Aunt Alive Brother 1 Alive Brother 2 Alive Daughter Alive Father Alive Half-Brother Maternal Alive Half-Sister 1 Maternal Alive Half-Sister 2 Paternal Alive Maternal Grandfather Maternal Grandmother Alive Mother Alive Other 2 maternal cousins Paternal Grandfather Paternal Grandmother Sister Alive Son 1 Alive Son 2 Alive Social History Tobacco Use Types Packs/Day Years Used Date Smoking Tobacco: Never Smokeless Tobacco: Never Tobacco Cessation:Counseling Given: Not Answered Alcohol Use Standard Drinks/Week Comments Yes 0 (1 standard drink = 0.6 oz pur e alcohol) Housing Instability Answer Date Recorde d Are you worried that in the next 2 months you may not have stable housing? No 07/25/2024 Food Access & Nutrition Answer Date Rec orded Do you have access to a vari ety of food including fruits and vegetables? Yes 07/25/2024 Health Literacy Answer Date Recorded How often do you need to hav e someone help you when you read instructions, pamphlets, or other written material from your doctor or pharmacy? Never 07/25/2024 Caregiver: How often do you need to have someone help you when you read instructions, pamphlets, or other written material from your doctor or pharmacy? Not on file 07/25/2024 Financial Risk Answer Date Recorded How hard is it for you to pa y for the very basics like food, housing, medical care, and air conditioning / heating? Not very hard 07/25/2024 Transportation Answer Date Recorded Has the lack of transportati on kept you from meetings, work, or from getting things needed for daily living? No Has the lack of transportati on kept you from medical appointments or from getting medications? No 07/25/2024 Social Isolation Answer Date Recorded How often do you feel lonely or isolated from th ose around you? Never 07/25/2024 Food Risk Answer Date Recorded Within the past 12 months we worried whether our food would run out before we got money to buy more. Never true 07/25/2024 Within the past 12 months th e food we bought just didn't last and we didn't have money to get more. Never true 07/25/2024 Dependent Care Answer Date Recorded Do you need help finding or paying for care for your loved ones. For example, child nutrition manager or elderly care for an older adult? No 07/25/2024 Education Answer Date Recorded Do you think completing more education or training, like finishing a GED, going to college, or learning a trade, would be helpful for you? N/A 07/25/2024 Employment and Income Answer Date Recor ded During the last four weeks, have you been actively looking for work? No 07/25/2024 Living Situation Answer Date Recorded What is your living situation? 0 07/25/2024 Comments No Sex and Gender Information Value Date Recorded Sex Assigned at Not on file Legal Sex Female 2:35 PM EST Gender Identity Not on file Sexual Orientation Not on file Obstetrics History Para Term AB IAB SAB Ectopic Multiple Livin g Live Births 3 2 2 1 1 Date Outcome GA Total Labor Labor/2nd/3rd Weight Sex Type Anes PTL Nati A1 A5 Name Clin SAB Term CS-Unsp ec Term CS-Unsp ec Last Filed Vital Signs Vital Sign Reading Time Taken Comments Blood Pressure 127/83 11/04/2024 1:15 PM EDT Pulse 82 11/04/2024 1:15 PM EDT Temperature 36.8 C (98.3 F) 11/04/2024 1:15 PM EDT Respiratory Rate 16 11/04/2024 1:15 PM EDT Oxygen Saturation 98% 11/04/2024 1:15 PM EDT Inhaled Oxygen Concentration - - Weight 75.3 kg (166 lb) 11/04/2024 1:15 PM EDT Height 160 cm (5' 3 ) 11/04/2024 1:15 PM EDT Body Mass Index 29.41 11/04/2024 1:15 PM EDT Plan of Treatment Health Maintenance Due Date Last Done Comments Hepatitis B Vaccines (1 of 3 - 19+ 3-dose series) 11/14/2006 COVID-19 Vaccine (2023-2 5 season) 2023 12/13/2020, 2020 Depression Screening 03/26/2024 09/01/2023 Influenza Vaccine (#1) 2024 , 01/14/2021 Social Influencers of Health Screening 07/25/2025 07/25/2024 Cervical Cancer Screening: HPV 05/08/2027 05/08/2022 Cholesterol Screening (Lipid Panel) 08/30/2028 08/31/2023, 08/31/2023 DTaP,Tdap,and Td Vaccines (2 - Td or Tdap) 01/08/2033 01/08/2023 HIV Screening Completed 11/03/2024, 04/15/2024 Hepatitis C Screening Completed 11/03/2024 , 04/15/2024, 05/11/2022 HIB Vaccines Aged Out No longer eligi ble based on patient's age to complete this topic HPV Vaccines Aged Out No longer eligi ble based on patient's age to complete this topic Hepatitis A Vaccines Aged Out No long er eligible based on patient's age to complete this topic IPV Vaccines Aged Out No longer eligi ble based on patient's age to complete this topic MMR Vaccines Aged Out No longer eligi ble based on patient's age to complete this topic Meningococcal ACWY Vaccine Aged Out N o longer eligible based on patient's age to complete this topic Meningococcal B Vaccine Aged Out No l onger eligible based on patient's age to complete this topic Pneumococcal Vaccine: Pediatrics (0 to 5 Years) and At-Risk Patients (6 to 49 Years) Aged Out No longer eligible b ased on patient's age to complete this topic RSV Immunization Patients Under 20 months Aged Out No longer eligible b ased on patient's age to complete this topic Varicella Vaccines Aged Out No longer eligible based on patient's age to complete this topic Procedures Procedure Name Priority Date/Time Associated Diagnosis Comments HEPATITIS C ANTIBODY Routine 11/03/2024 1:03 PM EDT Screen for STD (sexually transmitted disease) HIV 1, 2 ANTIBODY, P24 ANTIGEN WITH REFLEX TO DIFFERENTIATION Routine 11/03/2024 1:03 PM EDT Screen for STD (sexually transmitted disease) TREPONEMA PALLIDUM ANTIBODY WITH REFLEX TO RPR AND PARTICLE AGGLUTINATION Routine 11/03/2024 1:03 PM EDT Screen for STD (sexually transmitted disease) HM DEPRESSION SCREENING Routine 09/01/2023 LIPID PANEL Routine 08/31/2023 HM HPV Routine 05/08/2022 from Last 3 Months or Most Recently Relevant to Health Maintenance Results * Hepatitis C antibody (11/03/2024 1:03 PM EDT) Hepatitis C Antibody Negative Negative LAB CHEMISTRY METHOD 11/03/2024 5:27 PM EDT [facility] Blood Venous blood specimen / Unknown Venipuncture / Unknown 11/03/2024 1:03 PM EDT 11/03/2024 1:03 PM EDT Amanda PÉREZ LAB BLOOD ORDERABLES Final Resul t Performing Organization Address [facility]/ZIP Co de Phone Number [facility] [address] [place] [address], [place] [phone] * HIV 1,2 antibody, p24 antigen with reflex to differentiation (11/03/2024 1:03 PM EDT) HIV Combo AB/AG Negative Negative LAB CHEMISTRY METHOD 11/03/2024 5:28 PM EDT [facility] Blood Venous blood specimen / Unknown Venipuncture / Unknown 11/03/2024 1:03 PM EDT 11/03/2024 1:03 PM EDT Narrative [facility] - 11/03/2024 5:28 PM EDT This assay is a 4th generation assay allowing for earlier detection of HIV infection by detecting the presence of the HIV-1 p24 antigen as well as the traditional antibodies to HIV type 1 (including group O) and type 2. Use of a 4th generation assay is the current CDC recommendation for HIV screening. Amanda PÉREZ LAB BLOOD ORDERABLES Final Resul t Performing Organization Address [facility] de Phone Number [facility] [address] [place] [address], [place] [phone] * Treponema pallidum antibody with reflex to RPR and particle agglutination (11/03/2024 1:03 PM EDT) T. Pallidum Antibodies Negative Negative LAB CHEMISTRY METHOD 11/03/2024 4:59 PM EDT [facility] Blood Venous blood specimen / Unknown Venipuncture / Unknown 11/03/2024 1:03 PM EDT 11/03/2024 1:03 PM EDT Amanda PÉREZ LAB BLOOD ORDERABLES Final Resul t Performing Organization Address City/[facility]/ZIP Co de Phone Number [facility] [address] [place] [address], * Depression Screening (09/01/2023) Pathologist [facility] Depression Screening abstracted Historical Provider HEALTH MAINTENANCE Final Result * Lipid panel (08/31/2023) [facility] LDL/HDL Ratio 3 0 - 4 Triglycerides 95 0 - 150 mg/dL Cholesterol 165 0 - 200 mg/dL HDL 48 >=40 mg/dL LDL Cholesterol 98 0 - 100 mg/dL Blood Venous blood specimen / Unknown Historical Provider LAB BLOOD ORDERABLES Brandee l Result * Cervical Cancer Screening: HPV (05/08/2022) Pathologist [facility] Cervical Cancer Screening: HPV abstracted, negative Historical Provider HEALTH MAINTENANCE Final Result from Last 3 Months or Most Recently Relevant to Health Maintenance Insurance [facility] [employer] Care Teams Deicer Kit Assembler Relationship Specialty Start Date End Date Arabella Hurst MD [address] [place] [id number] PCP - General 04/28/22
== END 2024-11-06 15:06 | disposition home or self-care (01) ==
PROVIDERS: Emergency Provider Emergency Medicine; PCP Internal Medicine
DX: R51.9 Headache, unspecified (principal); Z91.81 History of falling
CPT/HCPCS: 70450; 99282; 99284

== ENCOUNTER → 2024-11-06 12:50 | Outpatient (BNV) | payer OTHER, SELFPAY | PROVIDERS: Emergency Provider Emergency Medicine; PCP Internal Medicine; Visit Provider Radiology Diagnostic Radiology | DX: R51.9 Headache, unspecified (principal) | CPT/HCPCS: 70450 ==